=== PATIENT | female | born 1965 | race Caucasian/White ===

== ENCOUNTER → 2017-03-29 | Outpatient (CLI) | payer OTHER ==
--- NOTE | ~2017-03-29 | CR4 ---
[facility] A Service of [facility] & [facility] / [facility] RADIOLOGY TEXT RESULTS PATIENT: LEAH MENDOZA LOCATION: [facility] : 65 UNIT #: [id number] AGE: [address]: Beverly Cornell MD SEX: F ORDER DR: [id number] [facility] [address] [place], [place] [address] [id number] O MR#: [id number] Acc #: [id number] NAME: LEAH MENDOZA : 1965 SEX: F STUDY DATE/TIME: 03/29/2017 12:21 UNIT: [facility] ROOM: STUDY DESCRIPTION: CR Abdomen Flat Upright or Dec Attending Physician: Beverly Cornell M.D. Ordering Physician: Beverly Cornell M.D. MEDICAL IMAGING REPORT This report is preliminary unless electronic signature is present EXAM Flat and upright abdomen 03/29/2017 INDICATION Mid to upper abdominal pain with nausea and vomiting for the last 2 days. FINDINGS Flat and upright views of the abdomen are compared with 11/03/2010. Bowel gas pattern is normal. There is no bowel obstruction or free air. Calcifications in the pelvis are unchanged and most compatible with phleboliths. IMPRESSION Negative flat and upright views of the abdomen. Dictated by... Jass Calle Jr., M.D. THIS IS AN ELECTRONICALLY VERIFIED REPORT Jass Calle Jr., M.D. at 03/30/2017 12:04 PM SERGIO/molly TD: 03/30/2017 07:22 JOB #: [id number] MEDICAL IMAGING REPORT Page 1 of 1 COPY
== END | disposition home or self-care (01) ==
LOC: CRAD 11:34
DX: R10.13 Epigastric pain (principal)
CPT/HCPCS: 74020